=== PATIENT | female | born 1960 | race Caucasian/White ===

== ENCOUNTER 2022-12-02 14:05 | Outpatient (CLI) | payer BC | END 2022-12-02 14:06 | disposition home or self-care (01) | LOC: CSHRAD 14:05 | PROVIDERS: ATTEND Internal Medicine Rheumatology | DX: M25.562 Pain in left knee (principal); M54.50 Low back pain, unspecified; M17.12 Unilateral primary osteoarthritis, left knee; M47.816 Spondylosis without myelopathy or radiculopathy, lumbar region | CPT/HCPCS: 72100 ==